=== PATIENT | male | born 1965 | race Caucasian/White ===

== ENCOUNTER 2017-04-04 10:47 | Inpatient (IN) ==
[2017-04-04 11:46] LABS: Basophils # 0.1 K/mcL (0.0-0.2); Basophils % 0.7 %; Eosinophils # 0.2 K/mcL (0.0-0.6); Hematocrit 43.6 % (37.5-50.1); Hemoglobin 14.3 g/dL (12.9-16.9); Immature Granulocytes % 0.4 % (0-4); Immature Platelets 2.1 % (1.1-6.1); Lymphocytes # 1.9 K/mcL (0.6-4.6); Lymphocytes % 17.9 %; Mean Corpuscular HGB Conc 32.8 g/dL (31.6-35.5); Mean Corpuscular Hemoglobin 29.2 pg (28.0-33.3); Mean Corpuscular Volume 89.2 fL (83.0-100.0); Mean Platelet Volume 9.5 fL (9.4-12.4); Monocytes # 1.1 K/mcL (0.0-1.3); Monocytes % 10.1 %; Neutrophils # 7.4 K/mcL (1.6-8.9); Platelet Count 292 K/mcL (140-400); Red Blood Count 4.89 M/mcL (4.19-5.50); Red Cell Distribution Width 12.8 % (11.5-14.5); Segmented Neutrophils % 68.9 %
[2017-04-04 11:52] LABS: Prothrombin Time 10.8 Seconds (9.4-12.1)
[2017-04-04 12:01] LABS: Alanine Aminotransferase 24 Units/L (0-55); Albumin 3.9 g/dL (3.5-5.0); Albumin/Globulin Ratio 1.1 (1.1-2.2); Alkaline Phosphatase 89 Units/L (38-126); Aspartate Amino Transferase 25 Units/L (5-34); BUN/Creatinine Ratio 21 (6-26); Bilirubin,Direct 0.2 mg/dL (0.0-0.5); Bilirubin,Indirect 0.1 mg/dL (0.0-1.2); Blood Urea Nitrogen 19 mg/dL (8-26); Calcium 9.7 mg/dL (8.6-10.8); Carbon Dioxide 27 mEq/L (19-29); Chloride 104 mEq/L (98-109); Globulin 3.5 g/dL (2.4-3.5); Glucose 92 mg/dL (70-99); Osmolality,Calculated 290 (280-300); Potassium 4.2 mEq/L (3.5-4.5); Sodium 139 mEq/L (136-145); Total Protein 7.4 g/dL (6.0-8.3); eGFR For African Americans > 60 (> 60); eGFR For Non-African Americans > 60 (> 60)
[2017-04-04 12:03] LABS: Bilirubin,Total < 0.3 mg/dL (0.2-1.2); Lipase < 10 Units/L (8-78)
--- NOTE | 2017-04-04 12:53 | Emergency Department Note ---
Disposition Clinical Impression: Pulmonary emboli Qualifiers: Pulmonary embolism type: other Chronicity: acute Acute cor pulmonale presence: without acute cor pulmonale Qualified Code(s): I26.99 - Other pulmonary embolism without acute cor pulmonale Chest pain Qualifiers: Chest pain type: unspecified Qualified Code(s): R07.9 - Chest pain, unspecified Disposition: Admitted As Inpatient Condition: Fair Time of Disposition: 12:57 Chest Pain HPI - General Chief Complaint: ED Chest Pain Stated Complaint: Chest Pain x 2-3 months with exertion Time Seen by Provider: 04/04/17 11:05 Source: patient, EMS Limitations: no limitations Vital Signs Reviewed: Yes Nursing Notes Reviewed: Yes - History of Present Illness HPI Narrative: Mr. Villalobos is a 52-year-old male with past medical history of hypertension who presents with a several week history of chest pain. He describes this pain as located in the center of his chest, it is sharp, and non-radiating. He says this pain is worsened by deep inspiration. He says he can alleviate his discomfort by laying back. He denies any shortness of breath or nausea and vomiting. Of note, he had left knee surgery performed by Dr. Steward here at [facility] 3 days ago. His family urged him to go to the ER this morning as he his chest pain felt as though it was increasing. However, on initial examination, he denies any increased pain, he states he is still feeling some discomfort. He denies any lower extremity calf pain or tenderness or increased swelling. Severity scale (1-10): 0 - Related Data Home Medications Medication Instructions Recorded Confirmed Lisinopril/Hydrochlorothiazide 1 tab PO DAILY 04/02/17 04/04/17 [Zestoretic 10-12.5 mg Tablet] Previous Rx's Medication Instructions Recorded Clindamycin [Cleocin] 150 mg PO Q6HR #7 capsule 04/02/17 HYDROcodone/Acet 5/325 mg [[place] 1 tab PO Q6H PRN #14 tab 04/02/17 5-325 mg] Allergies Allergy/AdvReac Type Severity Reaction Status Date / Time aspirin Allergy Nose Bleed Verified 11/01/16 11:24 All systems ED: reviewed and negative except as stated. Review of Systems: As Per HPI Constitutional: Denies: fever, chills Cardiovascular: Denies: chest pain, palpitations, dyspnea on exertion, edema Respiratory: Denies: cough, dyspnea, wheezes, hemoptysis Gastrointestinal: Denies: abdominal pain, nausea, vomiting, diarrhea, hematemesis, melena, hematochezia Genitourinary: Denies: urgency, dysuria, frequency Psychiatric: Denies: anxiety Chest Pain PMH - Past Medical History Medical history: Reports: hypertension Surgical history: Reports: no surgical history Psychiatric history: Reports: no psych history - Social History Smoking Status: Never smoker Alcohol use: Reports: none Drug use: Reports: none Physical Exam - General Limitations: no limitations General appearance: alert, in no apparent distress - Head Head exam: atraumatic, normocephalic - Eye Eye exam: Present: normal appearance, PERRL, EOMI - Chest Chest inspection: Present: other (Patient with chest pain localized to the left of his sternum. It is not reproducible, but is localized to that region. ) - Respiratory Respiratory exam: Present: normal lung sounds bilaterally. Absent: respiratory distress, wheezes - Cardiovascular Cardiovascular exam: Present: regular rate, normal rhythm. Absent: systolic murmur, diastolic murmur, rubs, gallop - Abdominal Exam Abdominal exam: Present: soft, Non-Tender - Extremities Exam Extremities exam: Present: other (Patient left knee c/w surgery 3 days ago. All skin incisions are c/d/i. No evidence of joint swelling. No calf swelling, tenderness or erythema bilaterlaly. 2+ pulses bilaterally in distal LE. ). Absent: calf tenderness - Neurological Exam Neurological exam: Present: alert, oriented X3. Absent: motor sensory deficit - Psychiatric Psychiatric exam: Present: normal affect, normal mood - Skin Skin exam: Present: warm, dry, intact Course Course Narrative: 52-year-old male presents with atypical chest pain, no shortness of breath, or nausea or vomiting. He has a history of lower extremity joint surgery 3 days ago. We will work him up for cardiac causes of chest pain although his physical exam history is not suggestive of this. We will also order a d-dimer because of his surgery and atypical pleuritic chest pain. - Reevaluation(s) Reevaluation #1: Mr. Villalobos's initial cardiac workup is negative. His d-dimer is elevated to the 12,000 range. Chest x-ray also shows some pulmonary congestion. As he just had surgery 3 days ago, we will proceed to the CTA of his chest. If positive, we will admit to the hospital for pulmonary embolus. However if negative, we will likely still admit to medicine for chest pain rule out. Reevaluation #2: Patient with bilateral pulmonary emboli. The emboli are not central, they are located in the bilateral lower lobar arteries. There is a right heart strain with RV to LV ratio greater than 1. There is a moderate thrombi burden although the contrast does get distal. We will start heparin drip and admit patient to medicine. Reevaluation #3: Talked to Dr. Pearce, on medicine patient is admitted. Vital Signs Temperature 97.8 F 04/04/17 10:48 Pulse Rate 62 04/04/17 10:48 Respiratory Rate 18 04/04/17 10:48 Blood Pressure 127/81 04/04/17 10:48 O2 Sat by Pulse Oximetry 98 04/04/17 10:48 Temperature 97.8 F 04/04/17 10:48 Pulse Rate 59 04/04/17 13:56 Respiratory Rate 16 04/04/17 13:56 Blood Pressure 122/79 04/04/17 13:56 O2 Sat by Pulse Oximetry 97 04/04/17 13:56 Oxygen Delivery Oxygen Delivery Room Air Chest Pain - Medical Records Medical records reviewed: Yes I reviewed the patient's medical records. - Lab Data Lab results reviewed: Yes I reviewed the patient's lab results. Result diagrams: 04/04/17 11:38 04/04/17 11:38 Lab Results 04/04/17 04/04/17 04/04/17 Range/Units 11:38 11:38 11:38 WBC 10.7 (4.3-11.1) K/mcL RBC 4.89 (4.19-5.50) M/mcL Hgb 14.3 (12.9-16.9) g/dL Hct 43.6 (37.5-50.1) % MCV 89.2 (83.0-100.0) fL MCH 29.2 (28.0-33.3) pg MCHC 32.8 (31.6-35.5) g/dL RDW 12.8 (11.5-14.5) % Plt Count 292 (140-400) K/mcL MPV 9.5 (9.4-12.4) fL Immature Gran % 0.4 (0-4) % Seg Neutrophils % 68.9 % Lymphocytes % 17.9 % Monocytes % 10.1 % Eosinophils % 2.0 % Basophils % 0.7 % Neutrophils # 7.4 (1.6-8.9) K/mcL Lymphocytes # 1.9 (0.6-4.6) K/mcL Monocytes # 1.1 (0.0-1.3) K/mcL Eosinophils # 0.2 (0.0-0.6) K/mcL Basophils # 0.1 (0.0-0.2) K/mcL Immature Plt Fraction 2.1 (1.1-6.1) % PT 10.8 (9.4-12.1) Seconds INR 1.0 APTT 30.0 (26.0-36.0) Seconds D-Dimer [id number] H (0-500) ng/mLFEU Sodium (136-145) mEq/L Potassium (3.5-4.5) mEq/L Chloride (98-109) mEq/L Carbon Dioxide (19-29) mEq/L BUN (8-26) mg/dL Creatinine (0.72-1.25) mg/dL Est GFR ( Amer) (> 60) Est GFR (Non-Af Amer) (> 60) BUN/Creatinine Ratio (6-26) Glucose (70-99) mg/dL Calculated Osmolality (280-300) Calcium (8.6-10.8) mg/dL Total Bilirubin < 0.3 (0.2-1.2) mg/dL Direct Bilirubin 0.2 (0.0-0.5) mg/dL Indirect Bilirubin 0.1 (0.0-1.2) mg/dL AST 25 (5-34) Units/L ALT 24 (0-55) Units/L Alkaline Phosphatase 89 (38-126) Units/L Troponin I (0-0.03) ng/mL Serum Total Protein 7.4 (6.0-8.3) g/dL Albumin 3.9 (3.5-5.0) g/dL Globulin 3.5 (2.4-3.5) g/dL Albumin/Globulin Ratio 1.1 (1.1-2.2) Lipase (8-78) Units/L 04/04/17 04/04/17 Range/Units 11:38 11:38 WBC (4.3-11.1) K/mcL RBC (4.19-5.50) M/mcL Hgb (12.9-16.9) g/dL Hct (37.5-50.1) % MCV (83.0-100.0) fL MCH (28.0-33.3) pg MCHC (31.6-35.5) g/dL RDW (11.5-14.5) % Plt Count (140-400) K/mcL MPV (9.4-12.4) fL Immature Gran % (0-4) % Seg Neutrophils % % Lymphocytes % % Monocytes % % Eosinophils % % Basophils % % Neutrophils # (1.6-8.9) K/mcL Lymphocytes # (0.6-4.6) K/mcL Monocytes # (0.0-1.3) K/mcL Eosinophils # (0.0-0.6) K/mcL Basophils # (0.0-0.2) K/mcL Immature Plt Fraction (1.1-6.1) % PT (9.4-12.1) Seconds INR APTT (26.0-36.0) Seconds D-Dimer (0-500) ng/mLFEU Sodium 139 (136-145) mEq/L Potassium 4.2 (3.5-4.5) mEq/L Chloride 104 (98-109) mEq/L Carbon Dioxide 27 (19-29) mEq/L BUN 19 (8-26) mg/dL Creatinine 0.89 (0.72-1.25) mg/dL Est GFR ( Amer) > 60 (> 60) Est GFR (Non-Af Amer) > 60 (> 60) BUN/Creatinine Ratio 21 (6-26) Glucose 92 (70-99) mg/dL Calculated Osmolality 290 (280-300) Calcium 9.7 (8.6-10.8) mg/dL Total Bilirubin (0.2-1.2) mg/dL Direct Bilirubin (0.0-0.5) mg/dL Indirect Bilirubin (0.0-1.2) mg/dL AST (5-34) Units/L ALT (0-55) Units/L Alkaline Phosphatase (38-126) Units/L Troponin I 0.01 (0-0.03) ng/mL Serum Total Protein (6.0-8.3) g/dL Albumin (3.5-5.0) g/dL Globulin (2.4-3.5) g/dL Albumin/Globulin Ratio (1.1-2.2) Lipase < 10 (8-78) Units/L - Radiology Data Radiology results reviewed: Yes I reviewed the patient's radiology results. Chest X-Ray 04/04/17 11:11 IMPRESSION: Mild cardiomegaly. Mild pulmonary vascular congestion. D/ / Da Pal MD / Da Pal MD Interpreting Provider: Da Pal MD Chest CTA 04/04/17 12:14 IMPRESSION: 1. Acute bilateral pulmonary emboli with moderate clot burden. The RV/LV ratio is elevated at 1.5 suggesting right heart strain. 2. No acute interstitial edema. No evidence of a pulmonary infarct. Critical results were called by Dr. Casper Hernandez MD to Nieves Segundo on 04/04/2017 at 12:51. D/ / 04/04/2017 12:58:26 Casper Hernandez MD / enrico Interpreting Provider: Casper Hernandez MD - EKG Data EKG attestation: Yes I reviewed and interpreted this EKG. EKG results narrative: Patient's ECG on April 04 at 10:49 AM shows sinus rhythm with 60 bpm. ECG does show S1 Q3 T3 sign. However, this is unchanged other than rate from ECG on 03/26/2017 at 9:50 AM which shows sinus bradycardia, as well as S1 Q3 T3 sign. Critical Care Time Critical Care Time: Yes Total Critical Care Time: 35 Attestation: Critical care time 35 minutes managing PE. Attestation Statement - Attestation Attestation: Patient was seen with resident physician. I reviewed the history, physical, assessment and plan, and agree with the findings. I also personally evaluated this patient and had [id number] time with this patient. 52-year-old male presents to the emergency department with chief complaint of intermittent chest pain. Pain started approximately 2 weeks ago. It is worse with deep inspiration minutes is on the left side of the chest. It is intermittent in nature. Sharp. Patient states he had knee surgery this past week, and now the pain has gotten significantly worse. Since the last 24 hours spent increasing in intensity and frequency. Patient has had shortness of breath but no diaphoresis. On examination vital signs were stable ENT is unremarkable. Heart and lungs normal. Abdomen is soft and nontender. Extremities patient has a well-healed wound on the left knee with no posterior calf or posterior thigh tenderness or swelling. ED course thorough workup to look for cardiac ampullary causes of his symptoms was started. EKG shows no acute changes from prior EKG. Chest x-ray shows some vascular congestion. D-dimer was 15,000. CT scan of the chest revealed bilateral ulnar embolisms with moderate amount of clot. Patient was started on heparin. Hospitalist was notified as to the need for admission. Hemodynamically the patient remained stable while in the emergency department. I agree with the resident physician assessment and plan. Critical care time 35 minutes.
[2017-04-04] MEDS ORDERED: Heparin 25,000 UNIT/500 ML D5W 25,000 UNIT/500 ML MLS IVC SCH (13:00)
[2017-04-04] MEDS ORDERED: *HR* Heparin 5,000 UNIT/ML VIAL IVP PRN ×2 (13:07)
[2017-04-04] MEDS ORDERED: *HR* Heparin 5,000 UNIT/ML VIAL IVP ONE (13:07)
[2017-04-04] MEDS ORDERED: Naloxone 0.4 MG/ML INJ IVP PRN (14:37)
[2017-04-04] MEDS ORDERED: Acetaminophen 325 MG TABLET PO PRN (14:37)
[2017-04-04] MEDS ORDERED: Ondansetron 4 MG/2 ML VIAL IVP PRN (14:37)
--- NOTE | 2017-04-04 15:12 | Internal Med History&Physical ---
Date of Encounter: 04/04/17 Time of Encounter: 15:00 Assessment and Plan (1) Pulmonary emboli Current visit: Yes Status: Acute Patient with a history of recent left knee arthroscopic surgery 3 days ago. Presents with sudden onset chest pain that started today. Benign physical exam and chest x-ray. CT angiogram reveals bilateral pulmonary him to live with" and regular strain pattern. Patient has been started on heparin drip in the emergency room. This will be continued. Patient will be admitted to inpatient status. Expected to be in the hospital for at least 2 midnights. Expected discharge disposition is to home. High risk due to need for intravenous heparin drip that needs close monitoring. At risk of cardiac function decline and respiratory failure. Discussed with the patient regarding options for coagulation including Coumadin and novel anticoagulants. Patient agreeable to novel anticoagulants. We will check with his pharmacy tomorrow regarding co-pays for alternative medications and chose a medication appropriately. Will obtain an echocardiogram to determine his cardiac function. Cycle troponins. Provoked DVT likely related to his recent left knee surgery. No indication for hypercoagulability workup. Qualifiers: Pulmonary embolism type: other Chronicity: acute Acute cor pulmonale presence: without acute cor pulmonale Qualified Code(s): I26.99 - Other pulmonary embolism without acute cor pulmonale (2) HTN (hypertension) Current visit: Yes Status: Chronic Controlled blood pressure. Continue home medications. Qualifiers: Hypertension type: essential hypertension Qualified Code(s): I10 - Essential (primary) hypertension Internal Medicine - H&P: HPI Chief complaint: Chest pain Admitted From: Emergency Dept Plans for Post Hospital Care: Home History of present illness: Mr. Villalobos is a 52 year old male with a history of essential hypertension presents to the emergency room due to chest pain that started this morning. He describes the pain as a stabbing pain on the left side of his chest of 7/10 intensity without any radiation that is worsened with standing up and movement and relieved with rest. Not associated with shortness of breath, cough, wheezing, palpitations or feeling lightheaded. He denies any nausea, abdominal pain, diarrhea or constipation. He denies any urinary symptoms. He presented to the emergency room due to the chest pain. The patient states that he was recently diagnosed with left knee meniscal tear and underwent arthroscopic repair of the same on 04/02/2017. He states that he has been emigrating since the surgery. However, he states that he has not been able to bend his left knee since the surgery. In the emergency room, the patient underwent a CT angiogram of the chest which revealed bilateral pulmonary emboli. He is being admitted to the hospital for the same. Past Med Surg Social Fam HX - Past Medical History Attestation: Yes The following information was validated with the patient. Medical history: hypertension Psychiatric history: no psych history - Past Surgical History Surgical History: arthroscopy (Left knee for meniscal tear) - Social History Smoking Status: Never smoker Smokeless Tobacco Status: Yes Alcohol use: none Drug use: none Current living situation: Home, With Family Activity Level: Independent ambulation - Family History Mother Hx Family Cardiac Disorders: Yes (Mother had congestive heart failure) Brother Hx Family Cancer: Yes (Lung cancer with a history of smoking) Internal Medicine - H&P: Meds Clindamycin [Cleocin] 150 mg PO Q6HR #7 capsule 04/02/17 [Rx] HYDROcodone/Acet 5/325 mg [[place] 5-325 mg] 1 tab PO Q6H PRN #14 tab 04/02/17 [Rx ] Lisinopril/Hydrochlorothiazide [Zestoretic 10-12.5 mg Tablet] 1 tab PO DAILY [History] 3 Allergy/AdvReac Type Severity Reaction Status Date / Time aspirin Allergy Nose Bleed Verified 11/01/16 11:24 All Systems PM: A 10-system review of systems was performed and is negative for pertinent findings except as documented above in the HPI. Review of systems: 10 systems have been reviewed and are negative except as mentioned in the history of present illness - Constitutional Vitals: Temp Pulse Resp BP Pulse Ox 97.8 F 62 18 124/89 97 04/04/17 10:48 04/04/17 14:48 04/04/17 14:48 04/04/17 14:46 04/04/17 14:48 Exam: Gen.: Sitting in bed. No acute distress. Eyes: Pupils equal, round and reactive to light. Extraocular muscles intact. ENT: Moist mucous membranes. No oropharyngeal erythema or discharge. Chest: Clear to auscultation bilaterally. No adventitious sounds present. No reproducible chest wall tenderness present. CVS: First and second heart sounds present. No murmurs, rubs or gallops. Abdomen: Soft, nontender, nondistended. Bowel sounds present. No hepatosplenomegaly. Skin: No decubitus ulcers appreciated. No rashes or bruising present. BELLMAN DRIVER: No focal neuro deficits present. Psychiatric: Alert, awake and oriented to time, place and person. Lymphatic system: No lymphadenopathy appreciated Musculoskeletal: Tenderness to palpation over the left knee joint. Limited range of motion of the left knee joint. Internal Med - H&P Results - Labs CBC & Chem 7: 04/04/17 11:38 04/04/17 11:38 - EKG Data -: EKG Interpreted by Myself EKG shows normal: sinus rhythm, ST-T waves (T-wave inversions in lead 3 unchanged from prior EKG) Rate: normal - Diagnostic Studies CT scan - chest Status: image reviewed by me (CT angiogram of the chest demonstrates acute bilateral pulmonary emboli with moderate clot burden. Radiology read describes features consistent with right heart strain pattern)
[2017-04-05 03:26] LABS: Basophils # 0.1 K/mcL (0.0-0.2); Basophils % 0.6 %; Eosinophils # 0.3 K/mcL (0.0-0.6); Eosinophils % 3.2 %; Hematocrit 43.3 % (37.5-50.1); Hemoglobin 14.2 g/dL (12.9-16.9); Immature Granulocytes % 0.3 % (0-4); Lymphocytes % 30.8 %; Mean Corpuscular HGB Conc 32.8 g/dL (31.6-35.5); Mean Corpuscular Hemoglobin 28.7 pg (28.0-33.3); Mean Corpuscular Volume 87.7 fL (83.0-100.0); Mean Platelet Volume 9.3 fL (9.4-12.4); Monocytes # 0.9 K/mcL (0.0-1.3); Monocytes % 9.5 %; Neutrophils # 5.4 K/mcL (1.6-8.9); Platelet Count 271 K/mcL (140-400); Red Blood Count 4.94 M/mcL (4.19-5.50); Red Cell Distribution Width 12.7 % (11.5-14.5); Segmented Neutrophils % 55.6 %
[2017-04-05 03:49] LABS: Alanine Aminotransferase 27 Units/L (0-55); Albumin 3.4 g/dL (3.5-5.0); Albumin/Globulin Ratio 0.9 (1.1-2.2); Alkaline Phosphatase 82 Units/L (38-126); Aspartate Amino Transferase 24 Units/L (5-34); BUN/Creatinine Ratio 17 (6-26); Bilirubin,Total 0.6 mg/dL (0.2-1.2); Blood Urea Nitrogen 16 mg/dL (8-26); Calcium 9.5 mg/dL (8.6-10.8); Carbon Dioxide 28 mEq/L (19-29); Chloride 104 mEq/L (98-109); Globulin 3.6 g/dL (2.4-3.5); Glucose 106 mg/dL (70-99); Osmolality,Calculated 288 (280-300); Potassium 3.8 mEq/L (3.5-4.5); Sodium 138 mEq/L (136-145); eGFR For African Americans > 60 (> 60); eGFR For Non-African Americans > 60 (> 60)
--- NOTE | 2017-04-05 09:07 | Discharge Summary ---
Date of Encounter: 04/05/17 Time of Encounter: 09:05 - Discharge Diagnosis (1) Pulmonary emboli Priority: Primary Status: Acute Qualifiers: Pulmonary embolism type: other Chronicity: acute Acute cor pulmonale presence: without acute cor pulmonale Qualified Code(s): I26.99 - Other pulmonary embolism without acute cor pulmonale (2) HTN (hypertension) Priority: Secondary Status: Chronic Qualifiers: Hypertension type: essential hypertension Qualified Code(s): I10 - Essential (primary) hypertension - Discharge Medications Prescriptions: Apixaban [Eliquis] 5 mg PO AD #60 tablet Home Medications: Clindamycin [Cleocin] 150 mg PO Q6HR #7 capsule 04/02/17 [Rx] HYDROcodone/Acet 5/325 mg [[place] 5-325 mg] 1 tab PO Q6H PRN #14 tab 04/02/17 [Rx ] Lisinopril/Hydrochlorothiazide [Zestoretic 10-12.5 mg Tablet] 1 tab PO DAILY [History] Apixaban [Eliquis] 5 mg PO AD #60 tablet 04/05/17 [Rx] Allergies/Adverse Reactions: 3 Allergy/AdvReac Type Severity Reaction Status Date / Time aspirin Allergy Nose Bleed Verified 11/01/16 11:24 Procedures/tests Complete & Pending: Procedures Performed prior 72 hours Category Date Time Status EV echocardiogram Routine Y 04/04/17 14:39 Ordered - Notes to Outpatient Provider 1. Follow-up results of echo as an outpatient Date of admission: 04/04/17 14:37 Primary care physician: Deonna Moya CNP Consults: 04/04/17 15:10 Consult to Winery Worker [CONS] Routine Reason for SW Consult: Xarelto, eliquis, dabigatran copay Discharging clinician: Presley Donovan Anticipated date of discharge: 04/05/17 - Patient Status Disposition: Home, Self-Care Condition: Good Functional capacity at discharge: independent ambulation Overall status at discharge: patient is progressing back to baseline - Discharge Instructions Follow Up With: Deonna Moya CNP [Primary Care Provider] - (1-2 weeks) - Diet and Activity Activity: increase activity as tolerated, resume usual activities as tolerated Diet: low salt diet Hospital course: Mr. Villalobos is a 52 year old male with a history of essential hypertension who presented to the emergency room due to sudden onset left-sided chest pain that was stabbing in nature. The patient recently underwent a left knee arthroscopy for meniscal tears about 3 days prior to presentation to the emergency room. In the emergency room, CT angiogram revealed pulmonary embolus bilaterally with findings consistent with right heart strain. He was admitted to the hospital and placed on heparin drip. The patient has had a dramatic improvement overnight and is able to ambulate without any symptoms of shortness of breath, lightheadedness or chest pain. He is eager to be discharged home. He is currently awaiting an echocardiogram. He has been started on eliquis which will be covered by his insurance. The patient has been instructed to be discharged home and will be discharged after he has the echocardiogram performed - Time Spent with Patient Total time spent providing and/or coordinating discharge services: Greater than 30 minutes (40 min) - Constitutional Vitals: Temp Pulse Resp BP Pulse Ox 98.4 F 62 14 132/83 95 04/05/17 07:00 04/05/17 07:00 04/05/17 07:00 04/05/17 07:00 04/05/17 07:00 Exam: Gen.: Lying in bed. No acute distress. Chest: Clear to auscultation bilaterally. No adventitious sounds present. CVS: First and second heart sounds present. No murmurs, rubs or gallops. Abdomen: Soft, nontender, nondistended. Bowel sounds present. No hepatosplenomegaly.
[2017-04-05] MEDS ORDERED: APIXABAN 5 MG TABLET PO SCH (09:15)
[2017-04-05 10:55] VITALS: BP 138/83
--- NOTE | 2017-04-05 17:10 | Electrocardiograph Report ---
[place] [id number] Test Date: 2017-04-04 Pat Name: Nathaniel Villalobos Department: 102 Room: [facility] Gender: M Poultry Picking Machine Tender: Loyd : 1965 Requested By: Jordan Vogel Order Number: [id number] Reading MD: Dorota Soto Measurements Intervals [place] Rate: 60 P: 34 MO: 169 QRS: -3 QRSD: 99 T: 19 QT: 371 QTc: 372 Interpretive Statements SINUS RHYTHM Electronically Signed On 04-05-2017 17:09:22 EDT by Dorota Soto
== END 2017-04-05 11:30 | disposition home or self-care (01) | DRG 176 ==
LOC: EMEROO 10:47 → 2NENU 10:47
PROVIDERS: ADMIT Internal Medicine; ATTEND Internal Medicine Sleep Medicine